=== PATIENT | male | born 1995 | race Caucasian/White ===

== ENCOUNTER 2019-07-03 22:21 | Emergency (ER) | payer OTHER ==
[~2019-07-03] VITALS: Ht 170.2 cm; Wt 81.6 kg
[2019-07-03 22:24] VITALS: BP 158/81; Ht 170.2 cm; Wt 81.6 kg
== END 2019-07-03 22:45 | disposition other institution (70) ==
LOC: ED 22:21
DX: Z02.89 Encounter for other administrative examinations (principal)